=== PATIENT | female | born 1965 | race Caucasian/White ===

== ENCOUNTER 2021-04-06 07:43 | Day surgery (SDC) | payer BC, SELFPAY ==
[2021-04-03 10:11] VITALS: BMI 21.4
--- NOTE | 2021-04-04 10:36 | P.CONAN_ITS ---
Documented by User: Chelsie Davies 04/04/21 10:37 HPI - Anesthesia Eval Consult details Narrative: 56yo F for Noel Bunionectomy and Excision of Sesamoid P/W PCP Cleared [facility] Past Medical History Medical History COVID-19 vaccine administered Elevated cholesterol GERD (gastroesophageal reflux disease) Hx of migraine headaches Hx of osteoporosis Mitral regurgitation Surgical History Surgical History Hx of myringotomy Social History Social History Household Members: Family Do you presently have visiting nurse or other home services: No Smoking Status: Never smoker Use of substances other than those prescribed or required for medical reasons: No Advance Directives Information Provided: No Meds Allergies Allergy/AdvReac Type Severity Reaction Status Date / Time Sulfa (Sulfonamide Allergy Intermediate Nausea Verified 04/03/21 10:17 Antibiotics) Home Medications Medication Instructions Recorded Confirmed Last Taken Type omeprazole 20 mg PO DAILY 04/03/21 04/03/21 Unknown History valacyclovir 2,000 mg PO Q12H PRN 04/03/21 04/03/21 Unknown History Exam Exam Date and Time: April 04, 2021 1036 Height,Weight and Vital Signs: Height 5 ft 1.5 in Weight 52.163 kg Assessment and Plan Assessment Anesthesia Assessment: Chart Reviewed Documented by User: Norma Viera 04/06/21 07:54 [facility] Past Medical History Medical History COVID-19 vaccine administered Elevated cholesterol GERD (gastroesophageal reflux disease) Hx of migraine headaches Hx of osteoporosis Mitral regurgitation Surgical History Surgical History Hx of myringotomy Social History Social History Household Members: Family Do you presently have visiting nurse or other home services: No Smoking Status: Never smoker Use of substances other than those prescribed or required for medical reasons: No Advance Directives Information Provided: No Meds Allergies Allergy/AdvReac Type Severity Reaction Status Date / Time Sulfa (Sulfonamide Allergy Intermediate Nausea Verified 04/03/21 10:17 Antibiotics) Home Medications Medication Instructions Recorded Confirmed Last Taken Type omeprazole 20 mg PO DAILY 04/03/21 04/03/21 Unknown History valacyclovir 2,000 mg PO Q12H PRN 04/03/21 04/03/21 Unknown History
--- NOTE | 2021-04-05 08:41 | HP_ITS ---
DATE OF SERVICE: 04/06/2021 PREOPERATIVE DIAGNOSES: 1. Hallux abductovalgus deformity, right foot. 2. Sesamoiditis, right foot. PLANNED PROCEDURES: 1. Scarf Bunionectomy, right foot. 2. Sesamoidectomy, right foot. PAST MEDICAL HISTORY: Mumps, chickenpox. CURRENT MEDICATIONS: Omeprazole, valacyclovir. SURGICAL HISTORY: Denies. FAMILY HISTORY: Denies. SOCIAL HISTORY: The patient is a nonsmoker. Denies any illicit drug use. 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 ALLERGIES: BACTRIM. HOSPITALIZATIONS: Denies. REVIEW OF SYMPTOMS: Within normal limits. HISTORY OF PRESENT ILLNESS: This is a 56-year-old female who presents with aching and tenderness in her great toe joint, right foot is worse than her left for several years, has been gradually getting progressively worse. Pain with pressure, standing, and walking. Has tried rest and changed shoes without any relief of symptoms. PHYSICAL EXAMINATION: GENERAL: Reveals a healthy, alert, well-nourished, well-developed, well-hydrated individual who demonstrates proper attention to body habitus and hygiene, in no acute distress. She is oriented to person, place, and time. NEUROLOGICAL: Reveals intact sensorium. Pain sensation is normal. Vibratory sensation is intact. Pinprick sensation is normal. The patient denies any anesthesias, burning paresthesias, or tingling bilaterally. VASCULAR: DP and PT pulses are 3/4 bilaterally. Capillary refill is immediate to all digits. Skin temperature is warm to cool proximal to distal. Hair growth, texture, elasticity, and turgor are normal. Pigmentation is normal, and there is no edema bilaterally. DERMATOLOGICAL: Reveals normal texture, elasticity, and turgor. There are no masses. The interspaces are clear. ORTHOPEDIC: Muscle strength is 5/5 in a symmetrical fashion. There is a medially prominent 1st metatarsophalangeal joint with pain on palpation. Inflammation is absent. Lateral tracking of the 1st MPJ is incompletely reducible, and there is pain on palpation to the plantar sesamoids. IMAGING: X-rays are reviewed, which show increased 1st intermetatarsal angle and hallux abductus angle consistent with bunion deformity, hypertrophy of the dorsal medial 1st metatarsal head without subchondral cysts, and position of the sesamoids is about #6. PLAN: The patient is scheduled for surgery. Several times, the bunion surgeries were discussed with the patient including but not limited to modified Howard bunionectomy, Noel or Saroj bunionectomy, shaft versus based wedge osteotomies with internal fixation, and Lapidus joint fusions with internal fixation. We discussed the risks of having surgery versus not having surgery, the potential surgical complications including but not limited to delayed or nonhealing, excessive scarring, excessive swelling, failure of the procedure, floppy toe infection, nonunion, numbness, chronic pain, reoccurrence, shortened toe, joint stiffness, and loss of toe, foot, life, or limb. The anesthesia and the usual postoperative course for each procedure were discussed. No guarantees were given. We decided to perform a Scarf bunionectomy with possible sesamoidectomy based on the patient's complaints, medical history and social history, physical exam, x-ray report, living and driving conditions, ability to ambulate afterwards, and required postoperative time as well as the patient's individual preference. Discussed reviewed x-rays with the patient. We discussed the findings related to the patient's symptoms and concerns. The patient would like to proceed with surgical treatment. She will obtain preoperative labs as well as medical clearance for surgery and anesthesia. She is made aware to stop any and all blood thinners including fish oil and [id number] aspirin at least 1 week prior to surgery and made aware of the fact that driving may not be allowed during a portion of the postoperative period. The patient deferred prescription for narcotic pain medication. Recommend staggering taking Tylenol Extra Strength and Motrin 800 mg as needed for any discomfort. Shelly Ziegler DPM LP/LUIS / [id number] JONAH
[2021-04-06 07:45] VITALS: BP 104/70; PULSE 74; RESP 18; TEMP 36.6; O2SAT 98
[2021-04-06] MEDS: Lactated Ringers 1,000 ML 100 ML IVCONT (08:04)
--- NOTE | 2021-04-06 08:10 | HO.ANESPROP2 ---
REPLACED BY [facility] Past Medical History Medical History COVID-19 vaccine administered Elevated cholesterol GERD (gastroesophageal reflux disease) Hx of migraine headaches Hx of osteoporosis Mitral regurgitation Surgical History Surgical History Hx of myringotomy Social History Social History Household Members: Family Do you presently have visiting nurse or other home services: No Smoking Status: Never smoker Use of substances other than those prescribed or required for medical reasons: No Advance Directives Information Provided: No Meds Allergies Allergy/AdvReac Type Severity Reaction Status Date / Time Sulfa (Sulfonamide Allergy Intermediate Nausea Verified 04/03/21 10:17 Antibiotics) Active Medications: Current Medications Generic Name Dose Route Start Last Admin Trade Name Freq PRN Reason Stop Dose Admin Lactated Ringer's 1,000 mls @ 100 mls/hr 04/06/21 07:15 04/06/21 08:04 Lr IVCONT 100 mls/hr .Q10H RUSTAM Administration Home Medications Medication Instructions Recorded Confirmed Last Taken Type omeprazole 20 mg PO DAILY 04/03/21 04/03/21 Unknown History valacyclovir 2,000 mg PO Q12H PRN 04/03/21 04/03/21 Unknown History Exam Exam Date and Time: April 06, 2021 0810 Height,Weight and Vital Signs: Height 5 ft 1.5 in Weight 52.163 kg Last Vital Signs Temp 98 F 04/06/21 07:45 Pulse 74 04/06/21 07:45 Resp 18 04/06/21 07:45 BP 104/70 04/06/21 07:45 Pulse Ox 98 04/06/21 07:45 Airway Mallampati Class: II TM Dist: >3cm Heart: RRR Lungs: CTA Assessment and Plan Assessment Anesthesia Assessment: Anesthesia Plan Discussed and Chart Reviewed Final Anesthetic Review NPO: Yes ASA Class: II Final Preanesthetic Review: No Changes in Pt Med Stat, Meds/Allgs Chart Reviewed, Consent Obtained/Reviewed and Anes Risks/Benef Reviewed Patient Risk: Low Procedure Risk: Low Anesthetic Plan Anesthetic Plan: MAC: Disposition: Standard PACU
--- NOTE | 2021-04-06 08:59 | MHC.SHP ---
Pre-Procedural Eval Section A The patient is an INPATIENT: No Changes since office visit: No Cold of Flu in the past 2 weeks, No New Medical Problems, No Changes in Medication and No Patient answered all questions The History & Physical has been completed within 30 days and I have reviewed it.: Yes Section B Chief Complaint: hallux valgus,joint disorder Allergies: Allergies Allergy/AdvReac Type Severity Reaction Status Date / Time Sulfa (Sulfonamide Allergy Intermediate Nausea Verified 04/03/21 10:17 Antibiotics) Plan I have reviewed the history and physical and performed a pertinent physical examination on my patient. No changes have occurred unless specified.
--- NOTE | 2021-04-06 09:50 | P.BOP_ITS ---
Brief Operative Note Date of Service: 04/06/21 Pre-op diagnosis: Hallux Abductovalgus right foot Post-op diagnosis: same Procedure: Scraf bunionectomy right foot Implants: [place] screws Surgeon: Shelly Ziegler Anesthesia: MAC and local Was an Electroencephalograph Technician used for this Procedure?: Yes Electroencephalograph Technician: Kiran Hernández Estimated blood loss (mL): 5 Tourniquet time (min): 28 Pathology: other Condition: stable Disposition: PACU
[2021-04-06 09:52] VITALS: BP 99/62; PULSE 63; RESP 16; TEMP 36.3; O2SAT 100
[2021-04-06 10:07] VITALS: BP 102/61; PULSE 76; RESP 18; O2SAT 100
[2021-04-06 10:22] VITALS: BP 115/69; PULSE 70; RESP 18; O2SAT 100
--- NOTE | 2021-04-13 10:40 | OP_ITS ---
SURGEON: Shelly Ziegler DPM PREOPERATIVE DIAGNOSIS: Hallux abductovalgus deformity, right foot. POSTOPERATIVE DIAGNOSIS: Hallux abductovalgus deformity, right foot. PROCEDURE PERFORMED: Right foot Scarf bunionectomy. ESTIMATED BLOOD LOSS: 5 mL. COMPLICATIONS: None. ANESTHESIA: Monitored anesthetic care with local consisting preoperatively of 18 mL of 0.5% Marcaine plain and 2% lidocaine plain and postoperatively of 5 mL of 0.5% Marcaine plain and 1 mL of dexamethasone. ASSISTANTS: Kiran Hernández DPM. SPECIMENS: Bone right foot TOURNIQUET: Pneumatic ankle tourniquet set at 215 mmHg for 28 minutes. INDICATIONS FOR SURGERY: The patient had painful bunion deformity noted to the right foot that had been present for several years, that has not been progressing with conservative treatments. The above-mentioned surgery was discussed at length with the patient including risks, benefits, and complications. No guarantees were given, and written and oral informed consent was obtained. PROCEDURE IN DETAIL: The patient was brought into the operating room, placed on the operating table in the supine position. 2 g of cefazolin was administered as a prophylactic preoperative antibiotic. Right foot was anesthetized with the above-mentioned local anesthetic and then the right foot was scrubbed, prepped, and draped in a sterile manner. Attention was directed to the right foot at the level of the first metatarsophalangeal joint. An incision was made approximately 12 cm in length. The incision was deepened down through subcutaneous tissue with great care being taken to retract vital, neural, and vascular structures and all bleeders were cauterized as necessary. A medial and parallel capsulotomy was made parallel to the extensor tendon to the level of bone of the first metatarsal shaft and head and the soft tissues were freed from their osseous attachments. The medial eminence was resected with power instrumentation of the first metatarsal head and passed from my operative site. Attention was then directed to the first interspace, where a lateral release was performed. The deep transverse intermetatarsal ligament, the medial sesamoidal ligament, and the abductor tendon were resected. A McGlamry elevator was also used to free up any adhesions of the first metatarsal head. During the lateral release, the fibular sesamoid was evaluated and noted to be in an adequate position, was not deviated as laterally as noted on x-ray and was therefore decided not to remove at that time. Attention was then directed back to the medial aspect of the first metatarsal head and shaft. An osteotomy was created. The first cut was made at the first metatarsal head on the plantar aspect. A long osteotomy was made through the shaft and then a dorsal osteotomy was made in the mid shaft dorsally forming a Z osteotomy.. Once the osteotomies were completed, the capital fragment was translocated laterally and shifted slightly to avoid any troughing, and was temporarily fixated with a 0.062 K-wire and then two 3-0 screws were placed across the osteotomy site, Two 17 mm Leodan Asnis screws under standard technique were insterted. All temporary guide wires were removed. Any overhanging medial eminence was resected with power instrumentation and passed from my operative site and the wound was irrigated with sterile normal saline. A piece of AmnioFix was placed. A medial capsulorrhaphy was made in the medial aspect of the medial capsule and reapproximated with 3-0 Vicryl. The dorsal capsule was reapproximated with 3-0 Vicryl in a continuous running fashion. The piece of AmnioFix was placed extracapsular and the soft tissues were reapproximated with 4-0 Vicryl and then a continuous running fashion. A ZipLine was placed over the incision and tightened. The postoperative injection of 0.5% Marcaine plain and 1 mL of dexamethasone was administered. The foot was then dressed with Betadine-soaked gauze, 4x4s, fluffs, Joanna, cast padding, and an Jay bandage. The patient tolerated the procedure and anesthesia well. The pneumatic ankle tourniquet was deflated and prompt capillary refill was noted to all 5 digits. The patient will be discharged home with written and oral postoperative instructions. She will take [id number] Motrin and Tylenol as needed for any discomfort. The patient will be partial weightbearing to the right foot with crutches and a surgical shoe or cast boot. Shelly Ziegler DPM LP/LIUS / [id number] JONAH
== END 2021-04-06 11:09 | disposition home or self-care (01) ==
PROVIDERS: PCP Nurse Practitioner Adult Health; Visit Provider Podiatrist
PROC: (CPT 28292; principal; 2021-04-06 09:10)
PROC: (CPT 28296; 2021-04-06 09:10)
DX: M20.11 Hallux valgus (acquired), right foot (principal); M25.871 Other specified joint disorders, right ankle and foot; Z88.0 Allergy status to penicillin
CPT/HCPCS: 28296; 88304; 88311; C1713; J0690; J1100; J2250; J2405; J3010; J3590

== ENCOUNTER 2021-10-05 07:01 | Day surgery (SDC) | payer BC, SELFPAY ==
[2021-09-28 10:56] VITALS: BMI 21.7
[2021-10-05 07:11] VITALS: BP 97/55; PULSE 82; RESP 16; TEMP 37.2; O2SAT 99
--- NOTE | 2021-10-05 08:18 | HO.ANESPROP2 ---
HPI - Anesthesia Eval Consult details Narrative: 56 yo female patient for Left Scarf Bunionectomy PMFSH Past Medical History Medical History Chest pain COVID-19 vaccine series completed Elevated cholesterol GERD (gastroesophageal reflux disease) Hx of cardiac murmur Hx of migraine headaches Mitral regurgitation Osteopenia Family History Family history of problems with anesthesia: No Surgical History Surgical History History of bunionectomy History of sinus surgery History of tympanoplasty of left ear Hx of myringotomy History of Problems with Anesthesia: No Social History Social History Household Members: Family Do you presently have visiting nurse or other home services: No Patient Tobacco Use Status: Never used Tobacco Use of substances other than those prescribed or required for medical reasons: No Are you DNR?: No Advance Directives: No Advance Directives Information Provided: Yes Advance Directives on File: No Meds Allergies Allergy/AdvReac Type Severity Reaction Status Date / Time Sulfa (Sulfonamide AdvReac Intermediate Nausea Verified 10/05/21 07:08 Antibiotics) Home Medications Medication Instructions Recorded Confirmed Last Taken Type valacyclovir 500 mg tablet 2,000 mg PO Q12H PRN 04/03/21 09/28/21 Unknown History Exam Exam Date and Time: October 05, 2021 0818 Height,Weight and Vital Signs: Height 5 ft 1 in Weight 52.163 kg Last Vital Signs Temp 99.0 F 10/05/21 07:11 Pulse 82 10/05/21 07:11 Resp 16 10/05/21 07:11 BP 97/55 L 10/05/21 07:11 Pulse Ox 99 10/05/21 07:11 Airway Mallampati Class: II TM Dist: >3cm Neck ROM: Full Loose/Missing/Broken Teeth: No Heart: RRR + murmur Lungs: CTAB Assessment and Plan Assessment Anesthesia Assessment: Anesthesia Plan Discussed and Chart Reviewed Final Anesthetic Review Family History of Problems with Anesthesia: No History of Problems with Anesthesia: No NPO: Yes ASA Class: II Final Preanesthetic Review: No Changes in Pt Med Stat, Meds/Allgs Chart Reviewed, Consent Obtained/Reviewed and Anes Risks/Benef Reviewed Patient Risk: Intermediate Procedure Risk: Low Assessment/Block/Sedation in SS: Assess/Block/Sedation-SS Anesthetic Plan Anesthetic Plan: GA and MAC: Disposition: Standard PACU
[2021-10-05] MEDS: Lactated Ringers 1,000 ML 100 ML IVCONT (08:29)
--- NOTE | 2021-10-05 08:29 | MHC.SHP ---
Pre-Procedural Eval Section A Date of Service: 10/05/21 The patient is an INPATIENT: No Changes since office visit: No Cold of Flu in the past 2 weeks, No New Medical Problems, No Changes in Medication and No Patient answered all questions The History & Physical has been completed within 30 days and I have reviewed it.: Yes Section B Chief Complaint: hallux valgus left foot Details of Present Illness: Pain left foot for several years Relevant Family History (Specify if Yes): No Relevant Social History: None Present Medications: see Short Stay Collaborative assessment Medical History: No relevant PMH History of Previous Operations: Relevant previous surgery/procedure and date(s) Allergies: Allergies Allergy/AdvReac Type Severity Reaction Status Date / Time Sulfa (Sulfonamide AdvReac Intermediate Nausea Verified 10/05/21 07:08 Antibiotics) Review of Systems Sugical H&P ROS: Negative: Constitution, Cardiovascular, Respiratory, Neurological, Psychiatric, Hem-Onc, Allergic/Immunologic, Gastrointestinal, Genitourinary, Musculoskeletal, Integumentary, Endocrine and Eyes/Ears/Nose/Throat Exam Surgical H&P Exam: Normal: HEENT, Normal: Heart, Normal: Lungs, Normal: Extremities, Normal: Abdomen, Normal: Skin and Normal: Neurological Plan Diagnosis/Plan: Unchanged I have reviewed the history and physical and performed a pertinent physical examination on my patient. No changes have occurred unless specified.
--- NOTE | 2021-10-05 09:27 | PM.OP ---
Brief Operative Note Date of Service: 10/05/21 Pre-op diagnosis: Left hallux abducto valgus Post-op diagnosis: same Procedure: Left Scarf bunionectomy Implants: 2 15mm Leodan asnis screws Surgeon: Shelly Ziegler Anesthesia: MAC and local Was an Design And Sales Consultant used for this Procedure?: Yes Design And Sales Consultant: Kiran Hernández Estimated blood loss (mL): 5 Tourniquet time (min): 24 Condition: stable Disposition: PACU
[2021-10-05 09:35] VITALS: BP 104/66; PULSE 63; RESP 16; TEMP 36.6; O2SAT 99
[2021-10-05 09:50] VITALS: BP 106/66; PULSE 64; RESP 16; TEMP 36.6; O2SAT 100
--- NOTE | 2021-10-05 17:58 | OP_ITS ---
SURGEON: Shelly Ziegler DPM PREOPERATIVE DIAGNOSIS: Hallux abductovalgus deformity, left foot. POSTOPERATIVE DIAGNOSIS: Hallux abductovalgus deformity, left foot. PROCEDURE PERFORMED: Left foot Scarf bunionectomy. ESTIMATED BLOOD LOSS: Less than 1 mL. COMPLICATIONS: None. ANESTHESIA: Monitored anesthetic care with local consisting preoperatively of 18 mL of 0.5% Marcaine plain and 2% lidocaine plain. ASSISTANTS: Kiran Hernández DPM. SPECIMENS: Bone left foot HEMOSTASIS: Pneumatic ankle tourniquet set at 215 mmHg for 24 minutes. INDICATIONS FOR SURGERY: The patient had painful bunion deformity noted to the left foot that has failed conservative treatment. The above-mentioned surgery was discussed in detail with the patient including risks, benefits, and possible complications. No guarantees were given, and a written and oral informed consent was obtained. DESCRIPTION OF PROCEDURE: The patient was brought into the operating room and placed on the operating table in the supine position. Following IV sedation, the above-mentioned local anesthetic was injected about the left foot in a regional field block fashion. 2 g of cefazolin was administered as a prophylactic preoperative antibiotic and the left foot was scrubbed, prepped, and draped in a sterile manner. Attention was directed to the left foot. Pneumatic ankle tourniquet was inflated after exsanguination of the left foot and attention was directed to the first metatarsophalangeal joint. An incision was made over that joint approximately 8 cm in length. The incision was deepened down through subcutaneous tissue with great care being taken to retract vital neural and vascular structures and all bleeders were cauterized as necessary. A linear capsulotomy was made medial and parallel to the extensor tendon. The soft tissues were freed about the 1st metatarsophalangeal joint. The medial eminence of the 1st metatarsal head was resected using power instrumentation and passed from the operative field. Attention was directed via the same incision to the first interspace where a lateral release was performed. The deep transverse intermetatarsal ligament, the fibular sesamoidal ligament, and the head of the adductor tendon were released, allowing the first metatarsal head to drift into a more corrected position. Attention was directed back medially where an osteotomy was created. First, an apex of the osteotomy was created at the 1st metatarsal head and then a wing pointing plantarly distally and then a wing pointing dorsally proximally which was connected with a horizontal incision creating a sideways Z-osteotomy. The Z-osteotomy was completed. The capital fragment was translocated laterally with great care being taken not to have the osteotomy trough into the mid shaft of the bone, and the foot was temporarily fixated with two K-wires from the 3-0 Asnis set and two 50 mm Leodan Asnis screws were placed under standard technique across the osteotomy site. The guidewires were removed. The remaining medial eminence of the osteotomy site was resected and passed from the operative site. There was noted be excellent compression of the osteotomy as well as reduction of the bunion deformity. The wound was irrigated with copious amounts of normal sterile saline. The capsular structures were reapproximated with 3-0 Vicryl in a continuous running fashion. The skin was reapproximated with 4-0 Vicryl in a continuous running fashion with interrupted suture technique of 4-0 nylon. Over the incision, a zip line was placed. A postoperative injection of 5 mL of 0.5% Marcaine plain and 1 mL of dexamethasone was administered. The left foot was then dressed with Adaptic, Betadine-soaked gauze, 4x4s, fluffs, Kerlix, cast padding, and an Jay bandage. Prompt capillary refill was noted after deflation of the pneumatic ankle tourniquet after 24 minutes. The patient tolerated procedure and anesthesia well. She was transferred to recovery room with vital signs stable and vascular status at preoperative levels. Following a period of postoperative recovery, the patient will be discharged home with written and oral postoperative instructions. The patient will follow up in my office for all postoperative followup care and if any problems arise. HARRY Rodgers / [phone] JONAH
== END 2021-10-05 10:20 | disposition home or self-care (01) ==
PROVIDERS: PCP Nurse Practitioner Adult Health; Visit Provider Podiatrist
PROC: (CPT 28292; principal; 2021-10-05 08:20)
DX: M20.12 Hallux valgus (acquired), left foot (principal); M21.612 Bunion of left foot; M79.672 Pain in left foot; M85.80 Other specified disorders of bone density and structure, unspecified site; I34.0 Nonrheumatic mitral (valve) insufficiency; K21.9 Gastro-esophageal reflux disease without esophagitis; Z88.2 Allergy status to sulfonamides
CPT/HCPCS: 28296; 88304; 88311; C1713; J0690; J1100; J2250; J3010

== ENCOUNTER 2024-02-12 07:57 | Emergency (ER) | payer BC, SELFPAY ==
--- NOTE | ~2024-02-12 | CT_ITS ---
CT ANGIOGRAM NECK WITH CONTRAST CT ANGIOGRAM BRAIN WITH CONTRAST CLINICAL INFORMATION: Severe left-sided headache, numbness, and dizziness. COMPARISON: Head CT 02/12/2024. TECHNIQUE: Test bolus sequences followed by intravenous administration 70 mL of Omnipaque 350. Helical imaging was performed in the axial plane from the thoracic inlet to the skull vertex. Delayed postcontrast imaging of the head was also performed. The data was processed at the certified neurodiagnostic technologist workstation for generation of MIP sequences. Angled MIPs and volume rendered reformatted images were also generated at an offline 3D workstation under concurrent supervision. Stenoses are assessed in accordance with NASCET criteria unless otherwise indicated. This CT examination was performed using dose optimization techniques as appropriate, variously including the following: *Automated exposure control *Adjustment of mA and/or kV according to patient size (this includes techniques or standardized protocols for targeted exams where dose is matched to indication/reason for exam; i.e. extremities or head) *Use of iterative reconstruction technique FINDINGS: BRAIN: [There is calcification within the globus pallidus bilaterally. There is background chronic microangiopathy. There is no intracranial hemorrhage, hydrocephalus, extra-axial surface collection, midline shift, or other herniation pattern. Gonzalez to white matter differentiation is diffusely maintained without evidence of an evolved acute territorial infarct. The basilar cisterns are preserved. No significant soft tissue abnormality. No acute osseous abnormality. There is moderate mucosal thickening and a small fluid level within the left maxillary sinus. The remaining paranasal sinuses are clear. There is a moderate left mastoid effusion. CERVICAL SOFT TISSUES AND LUNG APICES: Imaged upper lungs are clear. There is multilevel cervical spondylosis. NECK CTA: Left vertebral artery arises from the aortic arch. Proximal arch vessels are non-stenotic. The right vertebral artery is dominant. No significant ostial stenosis is visualized on either side. Both vertebral arteries are widely patent throughout their extracranial cervical course. Both common and internal carotid arteries are normal in course and caliber.] BRAIN CTA: [There is normal opacification of major intracranial arteries. No focal flow-limiting stenosis nor discrete proximal large artery occlusion. No aneurysm. Timing of the contrast bolus allows assessment of the major dural venous sinuses, which all opacify normally] CT/CT angio head neck stroke IMPRESSION: - No acute intracranial findings. Chronic microangiopathy. There is a moderate mucosal thickening and small fluid level within the left maxillary sinus and there is a moderate left mastoid effusion. - No acute arterial occlusions and no significant arterial stenoses within the head or neck. Findings discussed with Dr. James at 8:50 AM on 02/12/2024.
--- NOTE | ~2024-02-12 | CT_ITS ---
EXAMINATION: CT HEAD WITHOUT CONTRAST (STROKE PROTOCOL) CLINICAL INFORMATION: Stroke protocol. Left-sided headache and dizziness COMPARISON: None available. TECHNIQUE: Contiguous axial imaging was performed from the skull base to vertex without intravenous administration of contrast. This CT examination was performed using dose optimization techniques as appropriate, variously including the following: *Automated exposure control *Adjustment of mA and/or kV according to patient size (this includes techniques or standardized protocols for targeted exams where dose is matched to indication/reason for exam; i.e. extremities or head) *Use of iterative reconstruction technique DLP: 621.00 mGy-cm FINDINGS: No intra or extra-axial fluid collection or hemorrhage, mass, or mass effect. Bilateral basal ganglia calcifications incidentally are seen. Calvarium is intact. Moderate mucoperiosteal thickening noted in the left maxillary sinus with perhaps a small element of superimposed fluid. CT/CT head for stroke IMPRESSION: No intracranial hemorrhage. If symptoms persist, further evaluation with diffusion weighted MRI could be done. Results will be telephoned into the emergency room by the [facility] ENEDINA Ayala at 08:17 am
--- NOTE | 2024-02-12 08:00 | ECG_ITS ---
Test Reason : dizziness Blood Pressure : / mmHG Vent. Rate : 064 BPM Atrial Rate : 064 BPM P-R Int : 126 ms QRS Dur : 076 ms QT Int : 428 ms P-R-T Axes : 077 048 055 degrees QTc Int : 441 ms Normal sinus rhythm with sinus arrhythmia Normal ECG No previous ECGs available Referred By: Caitlin James Electronically Signed By:AGUSTIN ANAYA
[2024-02-12 08:06] VITALS: BP 117/59; BP 120/70; PULSE 75; PULSE 78; RESP 18; TEMP 36.4; O2SAT 100; BMI 18.9
[2024-02-12 08:11] LABS: Glucose, Whole Blood 114 mg/dL (60-115)
--- NOTE | 2024-02-12 08:17 | ED_ITS ---
HPI - Neuro Symptoms/Deficit General Chief Complaint: Stroke Stated Complaint: BERNARDO L SIDED NUMBNESS Source: patient, EMS and old records reviewed Mode of arrival: EMS Limitations: no limitations History of Present Illness HPI Narrative: 59 yo female with no sig PMH notes she was at work at 6am today and developed severe abrupt L sided headache and tingling on both cheeks she then felt her L 4th/5th fingers were numb she felt nausea/photophobia and tried advil without relief. She has sig nausea. No recent trauma, neck manipulation. She was fine before bed. This has never happened before. She feels very nauseated and dizzy at times. She is not on thinners. Onset (ago): hour(s) (6am today) Location: other (headache tingling both cheeks numbness L fingers) History of same: No Severity: severe Quality: tingling Relieving factors: none Exacerbating factors: none Context: sudden onset On Anticoagulants: No Associated symptoms: headaches and nausea/vomiting Treatments Prior to Arrival: other (advil) Related Data Home Medications Medication Instructions Recorded Confirmed valacyclovir 500 mg tablet 2,000 mg PO Q12H PRN Cold Sores 04/03/21 09/28/21 Previous Rx's Medication Instructions Recorded amoxicillin 875 mg-potassium 1 tab PO BID #14 tabs 02/12/24 clavulanate 125 mg tablet Allergies Allergy/AdvReac Type Severity Reaction Status Date / Time Sulfa (Sulfonamide AdvReac Intermediate Nausea Verified 10/05/21 07:08 Antibiotics) Review of Systems 2 Review of Systems: Constitutional : No Fever, No Chills, No Fatigue ENT/Mouth : No sore throat, No Rhinorrhea Eyes: No Eye Pain, No Swelling, No Redness Cardiovascular : No Chest Pain, No SOB, No Dyspnea on Exertion Respiratory : No Cough, No Sputum Gastrointestinal : pos Nausea, No Vomiting, No Diarrhea, No abdominal Pain Genitourinary : No Dysuria, No Urinary Frequency, No Hematuria, Musculoskeletal : No joint pain, No Myalgias, No Joint Swelling Skin : No Skin Lesions, No rash Neuro : No Weakness, pos Numbness, pos Dizziness, positive Headache Psych : No Anxiety/Panic, No Depression All other systems reviewed and are negative [facility] Past Medical History Attestation statement: The following information was validated with the patient. Source: old records reviewed Medical History Chest pain Hx of cardiac murmur COVID-19 vaccine series completed Osteopenia Hx of migraine headaches Mitral regurgitation Elevated cholesterol GERD (gastroesophageal reflux disease) Surgical History History of tympanoplasty of left ear History of bunionectomy History of sinus surgery Hx of myringotomy Social History Social History Household Members: Family Do you presently have visiting nurse or other home services: No Patient Tobacco Use Status: Never used Tobacco Advance Directives: No Advance Directives Information Provided: Yes Physical Exam 2 Vital Signs: Vital Signs: Last Vital Signs Temp 97.5 F 02/12/24 08:06 Pulse 69 02/12/24 10:23 Resp 14 02/12/24 10:23 BP 90/56 L 02/12/24 10:23 Pulse Ox 98 02/12/24 10:23 O2 Del Method Room Air 02/12/24 10:23 BMI result Body Mass Index 18.9 Appearance: Alert. Oriented X3. No acute distress. anxious Eyes: Pupils equal, round and reactive to light. ENT: Pharynx normal. Neck: Normal inspection. Neck supple. CVS: Normal heart rate and rhythm. Pulses normal. Respiratory: No respiratory distress. Breath sounds normal. Abdomen: Soft and nontender. Skin: Skin warm and dry. Normal skin color. Normal skin turgor. Extremities: No lower extremity edema. No calf ttp Neuro: Oriented X 3. No motor deficit. No sensory deficit. Medications Administered Discontinued Medications Generic Name Dose Route Start Last Admin Trade Name Freq PRN Reason Stop Dose Admin Diphenhydramine HCl 25 mg 02/12/24 08:31 02/12/24 08:46 Diphenhydramine Hcl 50 Mg/Ml Vial IVPUSH 02/12/24 08:32 25 mg ONCE ONE Administration Sodium Chloride 1,000 mls @ 999 mls/hr 02/12/24 08:45 02/12/24 09:50 Ns IV 02/12/24 09:45 Infused .Q1H1M RUSTAM Infusion Iohexol 100 ml 02/12/24 08:34 02/12/24 08:34 Iohexol 350 Mg/Ml 100 Ml Infus..Btl IV 02/12/24 08:35 70 ml ONCE ONE Administration Metoclopramide HCl 10 mg 02/12/24 08:31 02/12/24 08:48 Metoclopramide Hcl 10 Mg/2 Ml Vial IVPUSH 02/12/24 08:32 10 mg ONCE ONE Administration Morphine Sulfate 4 mg 02/12/24 08:31 02/12/24 08:48 Morphine Sulfate 4 Mg/Ml Cartridge IVPUSH 02/12/24 08:32 4 mg ONCE ONE Administration Protocol Medical Decision Making Medical Decision Making [facility] Narrative: 59 yo female with no sig PMH here with abrupt onset headache at work 6am felt tingling on both cheeks and tingling in L 4th and 5th fingers she has no weakness, no drift, neg rhombergs, able to do heel to duarte testing, NIH is 0 at this time will obtain CT head/CTA for ICH or dissection. IV supportive and IV morphine ordered. Could be complex migraine. No fevers to suggest TECHNOLOGY DEVELOPMENT INTERN infection. CT head done within 6 hours. I do not suspect CVA NIH is 0 TNK not indicated Differential Diagnosis Differential Diagnoses: The differential diagnosis associated with the presentation includes complex migraine, tension headache, ICH, dissection Admission/Observation Consideration of admission/observation: Escalation of care including admission/observation considered symptoms resolved feels much better CT scans negative within 6 hours doubt TIA or stroke suspect complex migraine Lab Data [facility] Lab Attestation statement: I reviewed the patient's lab results. 02/12/24 09:01 02/12/24 09:01 Labs: Lab Results 02/12/24 02/12/24 02/12/24 Range/Units 08:01 08:03 09:01 WBC 4.3 L (4.8-10.8) X10*3/uL RBC 4.30 (4.20-5.50) X10*6/uL Hgb 13.5 (12.0-16.0) g/dl Hct 37.6 (37.0-47.0) % MCV 87.4 (80.0-98.0) fL MCH 31.4 (27.0-33.0) pg MCHC 35.9 H (31.0-35.0) g/dl RDW 12.7 (11.0-16.0) % Plt Count 211 (160-400) X10*3/uL MPV 8.7 L (9.4-12.3) fL Immature Gran % (Auto) 0.2 (0.0-0.4) % Neut % (Auto) 68.8 (45-73) % Lymph % (Auto) 18.8 L (20-40) % [place] % (Auto) 8.4 (2-11) % Eos % (Auto) 1.9 (0-4) % Baso % (Auto) 1.9 (0-2) % Lymph # (Auto) 0.8 L (1.2-4.9) X10*3/uL [place] # (Auto) 0.4 (0.1-1.2) X10*3/uL Eos # (Auto) 0.1 (0.0-0.4) X10*3/uL Baso # (Auto) 0.1 (0.0-0.2) X10*3/uL Abs Immat Gran (auto) 0.01 (0.00-0.03) X10*3/uL Absolute Neuts (auto) 3.0 (2.0-8.3) x10*3/uL Absolute Nucleated RBC 0.000 (0.0-0.012) X10*3/uL Nucleated RBC % (auto) 0.0 (0.0-0.2) /100WBC PT 12.7 (11.1-13.3) SEC Whole Blood PT 12.7 (11.1-13.5) sec INR 1.0 (0.9-1.1) Whole Blood INR 1.1 (0.9-1.1) APTT 30.5 (26.0-36.8) SEC Sodium 138 (135-145) mmol/L Potassium 3.9 (3.3-5.1) mmol/L Chloride 106 (96-108) mmol/L Carbon Dioxide 24 (22-29) mmol/L Anion Gap 12 (12-20) BUN 12 (9-16) mg/dL Creatinine 0.88 (0.5-1.4) mg/dL Estim Creat Clear Calc 49.1 Estimated GFR > 60 POC Glucose 114 (60-115) mg/dL Random Glucose 97 (60-115) mg/dL Calcium 8.9 (8.4-10.2) mg/dL Magnesium 1.8 (1.6-2.6) mg/dL Total Bilirubin 1.0 (0.0-1.0) mg/dL Direct Bilirubin 0.4 (0.0-0.5) mg/dL AST 23 (5-31) U/L ALT 15 (0-31) U/L Alkaline Phosphatase 59 (39-117) U/L Troponin I High Sens < 2.7 (<3.5-17.0) ng/L Total Protein 6.4 L (6.5-8.0) g/dL Albumin 3.8 (3.5-5.0) g/dL Independent Interpretation I performed an independent interpretation of an: EKG and CT Scan (no ICH) Interpretation: Rate: 64 Rhythm: NSR [place]: normal Normal P waves. Normal FANNIE. Normal QRS complex. ST T wave : normal no DAISY qTC: 441 prior studies: no acute ischemia The study has been interpreted contemporaneously by me. . Radiology Impression Discussion of test interpretation with radiology: I discussed test interpretation with the radiologist and I have reviewed the radiologist's reading. Independent Historian Clinical information obtained from an independent historian. History obtained from or confirmed by: EMS External Record Review External record reviewed: Office record Prescription Management I considered prescription management with: Antibiotic NIH Stroke Scale Internal: Initial- Upon Arrival Level of Consciousness: Alert Level of Consciousness Questions: Answers both questions correctly Level of Consciousness Commands: Performs both tasks correctly Best Gaze: Normal Visual: No visual loss Facial Palsy: Normal Motor Arm (Right): No drift Motor Arm (Left): No drift Motor Leg (Right): No drift Motor Leg (Left): No drift Limb Ataxia: Absent Sensory: Normal Best Language: No aphasia Dysarthia: Normal Extinction and Inattention: No abnormality Score: 0 Critical Care Time Critical Care Time Critical Care Time: Yes Total Critical Care Time: 35 Attestation: stroke protocol, IV morphine with relief of pain I attest to this time spent taking care of the patient Discharge Plan Discharge Clinical Impression: Migraine headache Qualifiers: Migraine type: unspecified Status migrainosus presence: without status migrainosus Intractability: not intractable Qualified Code(s): G43.909 - Migraine, unspecified, not intractable, without status migrainosus Patient Disposition: Home, Self-Care Instructions: Migraine Headache (ED) Additional Instructions: return for any worsening symptoms or concerns confusion, fevers, worsening pain, weakness, numbness or any other concerns follow up with your sinus doctor given headache will treat possible sinusitis given symptoms on that side There is a moderate mucosal thickening and small fluid level within the left maxillary sinus and there is a moderate left mastoid effusion. Prescriptions: New amoxicillin-pot clavulanate 875-125 mg tablet 1 tab PO BID Qty: 14 0RF No Action valacyclovir 500 mg Tablet 2,000 mg PO Q12H PRN (Reason: Cold Sores) Stand Alone Forms: Work/School Release
[2024-02-12 08:21] LABS: Prothrombin Time Whole Bld POC 12.7 sec (11.1-13.5); ~PT, ~INR - Anti Coag Clinic 1.1 (0.9-1.1)
[2024-02-12] MEDS: iohexoL 350 MG/ML 100 ML INFUS..BTL IV (08:34)
--- NOTE | 2024-02-12 08:42 | MHC.STROKE ---
Notified of stroke alert in ED. Upon arrival to ED, patient in CT scan. Pt moved to bed 6 once scan complete. Pt awake, alert and oriented x 3. Skin warm and dry. Resp unlabored. c/o sudden onset headache while at work and nausea. Pt reports that she woke at 4 am and was at work by 5. Around 6am reports her headache started and was accompanied by nausea. Pt reports tingling to left fingers (4th and 5th fingers) and just below her nose. Pt is currently speaking in full sentences. No slurred speech or word finding difficulties appreciated. Hand grasp equal, no palmar drift. Equal bilateral leg strength. Heel to duarte test normal bilaterally. Does report some dizziness however is unable to classify it as spinning or rocking. Stroke/TIA education provided to patient. Pt aware and agreeable to ED care plan. Will continue to assist as needed.
[2024-02-12] MEDS: 0.9 % Sodium Chloride 1,000 ML 999 ML IV (08:45)
[2024-02-12] MEDS: diphenhydrAMINE HCL 50 MG/ML VIAL 25 MG IVPUSH (08:46)
[2024-02-12] MEDS: Metoclopramide HCl 10 MG/2 ML VIAL IVPUSH (08:48)
[2024-02-12] MEDS: Morphine Sulfate 4 MG/ML CARTRIDGE IVPUSH (08:48)
[2024-02-12 09:07] LABS: MANUAL DIFF FLAG NO
[2024-02-12 09:10] LABS: Basophils Absolute Auto 0.1 X10*3/uL (0.0-0.2); Basophils Percent Auto 1.9 % (0-2); Eosinophils Absolute Auto 0.1 X10*3/uL (0.0-0.4); Eosinophils Percent Auto 1.9 % (0-4); Hematocrit 37.6 % (37.0-47.0); Hemoglobin 13.5 g/dl (12.0-16.0); Imm Gran Abs Auto 0.01 X10*3/uL (0.00-0.03); Imm Gran Pct Auto 0.2 % (0.0-0.4); Lymphocytes Absolute Auto 0.8 X10*3/uL (1.2-4.9); Lymphocytes Percent Auto 18.8 % (20-40); Mean Corpuscular HGB Conc 35.9 g/dl (31.0-35.0); Mean Corpuscular Hemoglobin 31.4 pg (27.0-33.0); Mean Corpuscular Volume 87.4 fL (80.0-98.0); Mean Platelet Volume 8.7 fL (9.4-12.3); Monocytes Absolute Auto 0.4 X10*3/uL (0.1-1.2); Monocytes Percent Auto 8.4 % (2-11); Neutrophils Percent Auto 68.8 % (45-73); Platelet Count 211 X10*3/uL (160-400); Red Cell Distribution Width 12.7 % (11.0-16.0); White Blood Count 4.3 X10*3/uL (4.8-10.8)
[2024-02-12 09:13] LABS: Prothrombin Time 12.7 SEC (11.1-13.3)
[2024-02-12 09:16] LABS: Partial Thromboplastin Time 30.5 SEC (26.0-36.8)
--- NOTE | 2024-02-12 09:18 | PC.NURSE ---
aox4, neuro exam shows no deficits, no weakness, facial droop, slurred speech. denies cp, sob. endorses nausea and dizziness, no vomiting. on tele - NSR. EKG and labwork done. medicated per JAN for / headache and nasuea
[2024-02-12 09:26] LABS: Alanine Aminotransferase 15 U/L (0-31); Albumin Level 3.8 g/dL (3.5-5.0); Alkaline Phosphatase 59 U/L (39-117); Anion Gap 12 (12-20); Aspartate Amino Transferase 23 U/L (5-31); Bilirubin Direct 0.4 mg/dL (0.0-0.5); Blood Urea Nitrogen 12 mg/dL (9-16); Calcium 8.9 mg/dL (8.4-10.2); Carbon Dioxide 24 mmol/L (22-29); Chloride 106 mmol/L (96-108); Creatinine Clr Calc Pharmacy 49.1; Estimated Glomerular Filt Rate > 60; Glucose Random 97 mg/dL (60-115); Magnesium 1.8 mg/dL (1.6-2.6); Potassium 3.9 mmol/L (3.3-5.1); Sodium 138 mmol/L (135-145); Total Protein 6.4 g/dL (6.5-8.0)
[2024-02-12 09:30] LABS: Troponin-I High Sensitivity < 2.7 ng/L (<3.5-17.0)
[2024-02-12 10:23] VITALS: BP 90/56; PULSE 69; RESP 14; O2SAT 98
[2024-02-12 11:12] VITALS: BP 100/62; PULSE 70; RESP 16; TEMP 36.5; O2SAT 100
== END 2024-02-12 11:14 | disposition home or self-care (01) ==
PROVIDERS: Emergency Provider Emergency Medicine; PCP Nurse Practitioner Adult Health
DX: G43.909 Migraine, unspecified, not intractable, without status migrainosus (principal)
CPT/HCPCS: 36415; 70450; 70496; 70498; 80048; 80076; 82947; 83735; 84484; 85025; 85610; 85730; 93005; 96361; 96374; 96375; 99284; 99285; J1200; J2270; J2765; Q9967

== ENCOUNTER → 2024-02-12 08:00 | Outpatient (BNV) | payer BC, SELFPAY | PROVIDERS: Emergency Provider Emergency Medicine; PCP Nurse Practitioner Adult Health; Visit Provider Internal Medicine | DX: I49.9 Cardiac arrhythmia, unspecified (principal) | CPT/HCPCS: 93010 ==

== ENCOUNTER 2024-08-25 03:47 | Emergency (ER) | payer BC, SELFPAY ==
--- NOTE | ~2024-08-25 | US_ITS ---
EXAMINATION: US PELVIS CLINICAL INFORMATION: Right lower quadrant pain COMPARISON: CT abdomen and pelvis 08/25/2024 TECHNIQUE: Ultrasound of the pelvis is performed using both transabdominal and transvaginal transducers along with Doppler. Transvaginal imaging is performed due to inadequate visualization transabdominally. FINDINGS: Uterus: The uterus is anteverted and measures 6.1 x 2.9 x 4.1 cm cm. The double wall endometrial thickness is 2 mm. Echogenicity of the uterus is heterogeneous and there are some myometrial calcifications seen which could be related to fibroid disease although no discrete mass is identified. A few punctate calcifications are present in the uterus on the CT scan earlier today. A small amount of fluid is present in the endometrial canal The uterus is smooth. No visible fibroid. Adnexa: Both ovaries are visualized. There is normal color flow to the adnexa. There is no ovarian torsion. There is no pelvic ascites or fluid collection. Right ovary measures 1.9 x 0.7 x 0.6 cm. Left ovary measures 0.6 x 1.2 x 0.9 cm. US/US pelvic and transvaginal IMPRESSION: No significant abnormality is seen. Electronically signed by: Joel Martinez MD 08/25/2024 01:29 PM EDT
--- NOTE | ~2024-08-25 | CT_ITS ---
EXAMINATION: CT ABDOMEN AND PELVIS WITH CONTRAST CLINICAL INFORMATION: Right lower quadrant pain COMPARISON: None available. TECHNIQUE: Multidetector volumetric images were obtained from the superior aspect of the liver through the pubic symphysis following administration 85 mL of Omnipaque 350 intravenous contrast. Sagittal and coronal reformatted images were obtained on the technologist's workstation. Oral contrast: No This CT examination was performed using dose optimization techniques as appropriate, variously including the following: *Automated exposure control *Adjustment of mA and/or kV according to patient size (this includes techniques or standardized protocols for targeted exams where dose is matched to indication/reason for exam; i.e. extremities or head) *Use of iterative reconstruction technique DLP: 273 mGy-cm FINDINGS: LUNG BASES: The visualized lung bases are unremarkable. There is mild pectus excavatum LIVER, GALLBLADDER, AND BILIARY TREE: The liver is enlarged at 18 cm in cephalocaudad dimension. The No focal hepatic lesion or biliary ductal dilatation is present. The gallbladder is unremarkable with no evidence of radiopaque gallstones, gallbladder wall thickening, or obvious pericholecystic inflammatory changes. PANCREAS: Unremarkable. SPLEEN: Unremarkable. ADRENAL GLANDS: Unremarkable. KIDNEYS AND URETERS: The kidneys are normal in size, shape, and attenuation. No hydronephrosis, hydroureter, or calculi seen. Bilateral benign Bosniak class I renal cysts are noted which require no additional imaging or follow-up. No solid renal masses are seen. BLADDER: There is symmetric bladder wall thickening. No bladder calculi. GASTROINTESTINAL TRACT: The small and large bowel are unremarkable. Moderate stool burden in the colon. The appendix is unremarkable. ABDOMINAL WALL: No significant hernia is appreciated. LYMPH NODES: Normal. VASCULAR: Unremarkable. PELVIC VISCERA: Unremarkable. OSSEOUS STRUCTURES: Unremarkable. CT/CT abdomen pelvis w IV con IMPRESSION: 1. A cause for the patient's right lower quadrant pain has not been found. The appendix is normal. 2. Incidental note made of mild hepatomegaly, moderate stool burden and symmetric bladder wall thickening. Fleischner guidelines were followed. Electronically signed by: Joel Martinez MD 08/25/2024 09:40 AM EDT
[2024-08-25 03:58] VITALS: BP 110/67; PULSE 73; RESP 16; TEMP 36.4; O2SAT 96; BMI 19.8
--- OUTSIDE RECORDS SUMMARY | 2024-08-25 04:20 | XMS_ITS | Patient Health Record ---
Author Organization [facility] Address [address] [place] [address] Care Team Providers Care Professor Of Poultry Science Name Role Phone Crispin العلي, Marva Primary Care Provider Shelly Blood Unavailable [phone] ALLERGIES Allergen (clinical drug ingredient) Drug/Non Drug Allergy documented on EMR Reaction Allergy Type Onset Date Status sulfamethoxazole / trimethoprim Bactrim Unknown Drug Allergy Active REASON FOR REFERRAL No Information MEDICATIONS Medication SIG (Take, Route, Fr equency, Duration) Notes Start Date End Date Status Omeprazole 20 MG as directed Orally Once a day Not-Taking Multivitamin PRN Active valACYclovir HCl prrn Act sharif Physical Therapy . . . 2-3x/week for 3-4 weeks Active Flonase Not-Taking IMMUNIZATIONS Vaccine Route Administration Date Status Comme nts Influenza Unknown 10/17/2021 Refused COVID-19 Moderna Vaccine Unknown 11/13/2021 Administered First Dose: 02/06/2021 Second Dose: 03/06/2021 SOCIAL HISTORY Tobacco Use: Social History Observation Description Date Details (start date - stop date) Never Smoker NA - NA Sex Assigned At : Social History Observation Description Sex Assigned At Unknown Tobacco Use/Smoking Question Answer Notes Are you a: nonsmoker Alcohol Screen Question Answer Notes Did you have a drink contain ing alcohol in the past year? Yes How often did you have a dri nk containing alcohol in the past year? Monthly or less (1 point) How often did you have 6 or more drinks on one occasion in the past year? Less than monthly (1 point) Points 2 Interpretation Negative Tobacco use other than smoking: Question Answer Notes Are you an other tobacco user? No PROBLEMS Problem Type ICD Code Onset Dates Problem Status W/U Status Risk SNOMED Code Notes Problem Hallux valgus (acquired), left foot (M20.12) Active confirmed Acquired hallux valgus (47323486) Problem Hallux valgus (acquired), right foot (M20.11) Active confirmed Acquired hallux valgus (40707082) PLAN OF TREATMENT Pending Test Test Name Order Date X ray : Foot, left 3V 01/29/2020 X ray : Foot, left 3V 10/10/2021 X ray : Foot, left 3V 11/01/2021 X ray : Foot, left 3V 10/17/2021 X ray : Foot, left 3V 11/22/2021 X ray : Foot, right 3V 04/18/2021 X ray : Foot, right 3V 05/02/2021 X ray : Foot, right 3V 05/23/2021 X ray : Foot, right 3V 04/10/2021 X ray : Foot, right 3V 01/04/2021 X ray : Foot, right 3V 01/29/2020 Insurance Providers Payer Name Payer Address Payer Phone Subscriber Number Group Number Insured Name Patient Relationship to Insured Coverage Start Date Coverage End Date [facility] All Others [address] [place] [address] [id number] Yaritza Negron Self - patient is the insured MEDICAL (GENERAL) HISTORY Medical History History ICD Code Mumps Chicken pox Surgical History Surgery Date(Month/Year) right foot surgery 04/06/2021 Left Foot Surgery 10/05/21
[2024-08-25 04:21] LABS: Basophils Absolute Auto 0.1 X10*3/uL (0.0-0.2); Basophils Percent Auto 1.3 % (0-2); Eosinophils Absolute Auto 0.3 X10*3/uL (0.0-0.4); Eosinophils Percent Auto 3.3 % (0-4); Hemoglobin 13.5 g/dl (12.0-16.0); Imm Gran Abs Auto 0.02 X10*3/uL (0.00-0.03); Imm Gran Pct Auto 0.3 % (0.0-0.4); Lymphocytes Percent Auto 25.4 % (20-40); MANUAL DIFF FLAG NO; Mean Corpuscular HGB Conc 34.6 g/dl (31.0-35.0); Mean Corpuscular Volume 89.7 fL (80.0-98.0); Mean Platelet Volume 8.1 fL (9.4-12.3); Monocytes Absolute Auto 0.8 X10*3/uL (0.1-1.2); Monocytes Percent Auto 9.6 % (2-11); Neutrophils Absolute Auto 4.7 x10*3/uL (2.0-8.3); Neutrophils Percent Auto 60.1 % (45-73); Platelet Count 223 X10*3/uL (160-400); Red Blood Count 4.35 X10*6/uL (4.20-5.50); Red Cell Distribution Width 12.7 % (11.0-16.0); White Blood Count 7.8 X10*3/uL (4.8-10.8)
[2024-08-25 04:23] LABS: Appearance Urine Clear; Color Urine Yellow; Glucose Urine UA Negative (Negative); Leukocyte Esterase Urine Small (1+) (Negative); Nitrite Urine Negative (Negative); PH 6.5 (5.0-9.0); UMIC TRIGGER UACC YES; Urine Blood Small (1+) (Negative); Urine Ketones Negative (Negative); Urine Protein Negative (Neg-Trace)
[2024-08-25 04:24] LABS: UPreg QC Valid YES; Urine Pregnancy NEGATIVE (NEGATIVE)
[2024-08-25 04:31] LABS: Bacteria Urine None Seen (None Seen); Hyaline Casts Urine 0-2 /LPF (0-2); Squamous Epithelial Cell Urine 0-2 /HPF (0-2); UACC Culture Trigger YES; WBC Urine 0-5 /HPF (0-5)
[2024-08-25 04:32] LABS: Anion Gap 14 (12-20); Blood Urea Nitrogen 18 mg/dL (9-16); Carbon Dioxide 25 mmol/L (22-29); Chloride 108 mmol/L (96-108); Creatinine Clr Calc Pharmacy 54.7; Estimated Glomerular Filt Rate > 60; Glucose Random 101 mg/dL (60-115); Potassium 4.1 mmol/L (3.3-5.1); Sodium 143 mmol/L (135-145)
[2024-08-25 05:56] VITALS: BP 114/72; PULSE 69; RESP 14; TEMP 36.7; O2SAT 99
--- NOTE | 2024-08-25 06:29 | ED_ITS ---
HPI - Abdominal Pain General Chief Complaint: Abdominal Pain Stated Complaint: r sided lower abd pain Time Seen by Provider: 08/25/24 06:29 Source: patient and RN notes reviewed Mode of arrival: ambulatory Limitations: no limitations History of Present Illness ED Provider: Brenda Burnette PA-C [facility] narrative: This is a 59-year-old female, with no known medical problems, who presents emergency department with complaints of right lower quadrant pain which started yesterday. Patient reports that she noticed that she could not even wear her seatbelt yesterday due to the pain in her right lower quadrant. She states that she has a constant pain that waxes and wanes in severity, states that every 5 minutes or so she gets a sharp pain. She states that the pain does radiate into her right flank. She denies any urinary symptoms, no pain with urination, no dysuria, hematuria, urinary frequency or urgency. She denies taking any medications at this time. No fevers, chills, chest pain, shortness of breath, nausea, vomiting or diarrhea. No constipation. She last moved her bowels at 2:00 a.m. this morning, normal. No bloody or black stool. She did have a colonoscopy performed last week, this was performed due to polyps in her colon, there was no excisions or biopsies performed. No other complaints or concerns at this time. MD elicited complaint: abdominal pain Pertinent past history: none Onset (ago): day(s) Pain Consistency: constant Location: RLQ Severity: moderate Quality: cramping and aching Radiation: R flank Exacerbating factors: nothing Relieving factors: nothing Associated symptoms: denies other symptoms Related Data Home Medications ?Medication ?Instructions ?Recorded ?Confirmed valacyclovir 500 mg tablet 2,000 mg PO Q12H PRN Cold Sores 04/03/21 09/28/21 Previous Rx's ?Medication ?Instructions ?Recorded amoxicillin 875 mg-potassium 1 tab PO BID #14 tabs 02/12/24 clavulanate 125 mg tablet Allergies Allergy/AdvReac Type Severity Reaction Status Date / Time Sulfa (Sulfonamide AdvReac Intermediate Nausea Verified 08/25/24 04:02 Antibiotics) Review of Systems Review of Systems Yes all other systems are reviewed and are negative Constitutional: Reports as per [facility] Past Medical History Attestation statement: The following information was validated with the patient. Medical History Chest pain Hx of cardiac murmur COVID-19 vaccine series completed Osteopenia Hx of migraine headaches Mitral regurgitation Elevated cholesterol GERD (gastroesophageal reflux disease) Surgical History History of tympanoplasty of left ear History of bunionectomy History of sinus surgery Hx of myringotomy Social History Social History Household Members: Family Do you presently have visiting nurse or other home services: No Alcohol intake: current Alcohol intake frequency: holidays/special occasions only Patient Tobacco Use Status: Never used Tobacco Smoked in Last 30 Days: No Use of substances other than those prescribed or required for medical reasons: No Advance Directives: No Advance Directives Information Provided: Yes Do you have a plan to hurt others: No Plan Physical Exam ED Vital Signs: Vital Signs - 24 hr 08/25/24 03:58 08/25/24 05:56 08/25/24 08:00 Temperature 97.6 F 98.0 F 98.1 F Pulse Rate 73 69 72 Respiratory Rate 16 14 16 Blood Pressure 110/67 114/72 112/62 Pulse Oximetry 96 99 100 Oxygen Delivery Method Room Air Room Air Room Air 08/25/24 12:21 Temperature 98.0 F Pulse Rate 78 Respiratory Rate 16 Blood Pressure 116/59 L Pulse Oximetry 99 Oxygen Delivery Method Room Air BMI result Body Mass Index 19.8 Const General: cooperative, comfortable and no acute distress Orientation/consciousness: patient oriented x3 Limitations: no limitations [facility] Head: Yes normal to inspection, Yes normocephalic and Yes atraumatic Ears: hearing grossly normal bilaterally General nose exam: Normal external nose present Face and sinus: Yes normal facial exam Mouth: Normal oral and palatal mucosa present, oropharynx normal and moist mucous membranes Throat: Yes posterior oropharynx normal Eyes General: appearance normal, both eyes and all related structures Eyelids: Yes eyelids normal Conjunctivae: conjunctivae normal Sclerae: sclerae normal Pupils: Equal, round and reactive pupils present EOM: EOMs intact bilaterally Neck Neck: Yes normal visual inspection, Yes full ROM and Yes no lymphadenopathy Lymphatic: no lymphadenopathy noted Chest Chest palpation & inspection: normal inspection of the chest Resp Effort & Inspection: normal respiratory effort and able to speak in complete sentences Auscultation: clear to auscultation bilaterally, no crackles, no rales, no rhonchi and no wheezes Cardio Rate: regular rate Rhythm: regular rhythm Heart sounds: S1 normal heart sound present and S2 normal heart sound present GI Other: Right lower abdominal pain with palpation, no rebound or guarding. Patient also with right lower suprapubic tenderness on examination. Palpable masses Inspection: Yes normal to inspection Skin General skin exam: no rashes or lesions noted Trauma: no lacerations or abrasions Wounds: no wounds Neuro General: patient oriented x3 and moves all extremities Cranial nerves: Yes Equal, round and reactive pupils present Extrem General: Yes normal to inspection Right upper extremity: normal to inspection Left upper extremity: normal to inspection Right lower extremity: normal to inspection Left lower extremity: normal to inspection Course Reevaluation(s) Reevaluation #1: CT scan returns, revealing no acute abnormality. Discussed findings with patient. Given location, will obtain pelvic ultrasound to rule out any ovarian or pelvic etiology. She remained stable, offered pain medication however patient politely declines. We will continue to monitor pending workup. Time: 11:30 Reevaluation #2: Ultrasound returns, there is no significant abnormality seen. Discussed findings with patient. Urine appears to be contaminated, she is not having any urinary symptoms therefore we are awaiting urine culture to see if patient's urine comes back positive for urinary tract infection. CT scan shows no acute findings, there is slight bladder wall thickening however patient has no urinary symptoms, therefore we will await for the urine culture. There is also signs of a enlarged liver, nonspecific. I relayed these findings with patient. She remained stable throughout her entire ER stay. Vital signs stable. She is comfortable. At this point I believe it is reasonable to discharge her with return precautions. She will follow-up with her OBGYN as well as primary care physician. Patient stable for discharge. Time: 13:48 Medical Decision Making Medical Decision Making MDM Narrative: This is a 59-year-old female who presents emergency department with complaints of acute onset of right lower quadrant pain. On arrival, vital signs within normal limits. She is speaking full sentences under no acute distress. Patient has right lower quadrant pain as well as right suprapubic tenderness on examination. Given recent colonoscopy performed about a week and a half ago, will obtain CT to rule out any intraperitoneal process. Differential diagnoses include bowel obstruction, bowel perforation, diverticulitis, diverticulosis, colitis, UTI, pyelonephritis. Plan: Labs, UA, CT abdomen and pelvis Differential Diagnosis Differential Diagnoses: The differential diagnosis associated with the presentation includes See above Admission/Observation Consideration of admission/observation: Escalation of care including admission/observation considered Escalation of care including admission/observation considered however given workup today not warranted at this time. Lab Data MDM Lab Attestation statement: I reviewed the patient's lab results. No leukocytosis, stable H&H, chemistry revealing no electrolyte derangement. Urine with small blood, small leuk esterases, and rbc's. Patient has no urinary symptoms. 08/25/24 04:15 08/25/24 04:15 Labs: Lab Results 08/25/24 08/25/24 Range/Units 04:15 04:16 WBC 7.8 (4.8-10.8) X10*3/uL RBC 4.35 (4.20-5.50) X10*6/uL Hgb 13.5 (12.0-16.0) g/dl Hct 39.0 (37.0-47.0) % MCV 89.7 (80.0-98.0) fL MCH 31.0 (27.0-33.0) pg MCHC 34.6 (31.0-35.0) g/dl RDW 12.7 (11.0-16.0) % Plt Count 223 (160-400) X10*3/uL MPV 8.1 L (9.4-12.3) fL Immature Gran % (Auto) 0.3 (0.0-0.4) % Neut % (Auto) 60.1 (45-73) % Lymph % (Auto) 25.4 (20-40) % Treasure % (Auto) 9.6 (2-11) % Eos % (Auto) 3.3 (0-4) % Baso % (Auto) 1.3 (0-2) % Lymph # (Auto) 2.0 (1.2-4.9) X10*3/uL Treasure # (Auto) 0.8 (0.1-1.2) X10*3/uL Eos # (Auto) 0.3 (0.0-0.4) X10*3/uL Baso # (Auto) 0.1 (0.0-0.2) X10*3/uL Abs Immat Gran (auto) 0.02 (0.00-0.03) X10*3/uL Absolute Neuts (auto) 4.7 (2.0-8.3) x10*3/uL Absolute Nucleated RBC 0.000 (0.0-0.012) X10*3/uL Nucleated RBC % (auto) 0.0 (0.0-0.2) /100WBC Sodium 143 (135-145) mmol/L Potassium 4.1 (3.3-5.1) mmol/L Chloride 108 (96-108) mmol/L Carbon Dioxide 25 (22-29) mmol/L Anion Gap 14 (12-20) BUN 18 H (9-16) mg/dL Creatinine 0.83 (0.5-1.4) mg/dL Estim Creat Clear Calc 54.7 Estimated GFR > 60 Random Glucose 101 (60-115) mg/dL Calcium 9.0 (8.4-10.2) mg/dL Urine Color Yellow Urine Appearance Clear Urine pH 6.5 (5.0-9.0) Ur Specific Eagle 1.020 (1.005-1.025) Urine Protein Negative (Neg-Trace) mg/dL Urine Glucose (UA) Negative (Negative) mg/dL Urine Ketones Negative (Negative) mg/dL Urine Blood Small (1+) H (Negative) Urine Nitrite Negative (Negative) Ur Leukocyte Esterase Small (1+) H (Negative) Urine RBC 11-20 H (0-2) /HPF Urine WBC 0-5 (0-5) /HPF Ur Squamous Epith Cells 0-2 (0-2) /HPF Urine Bacteria None Seen (None Seen) Hyaline Casts 0-2 (0-2) /LPF Urine Test NEGATIVE (NEGATIVE) Radiology Impression Discussion of test interpretation with radiology: I have reviewed the radiologist's reading. Radiologist Impression: EXAMINATION: US PELVIS CLINICAL INFORMATION: Right lower quadrant pain COMPARISON: CT abdomen and pelvis 08/25/2024 TECHNIQUE: Ultrasound of the pelvis is performed using both transabdominal and transvaginal transducers along with Doppler. Transvaginal imaging is performed due to inadequate visualization transabdominally. FINDINGS: Uterus: The uterus is anteverted and measures 6.1 x 2.9 x 4.1 cm cm. The double wall endometrial thickness is 2 mm. Echogenicity of the uterus is heterogeneous and there are some myometrial calcifications seen which could be related to fibroid disease although no discrete mass is identified. A few punctate calcifications are present in the uterus on the CT scan earlier today. A small amount of fluid is present in the endometrial canal The uterus is smooth. No visible fibroid. Adnexa: Both ovaries are visualized. There is normal color flow to the adnexa. There is no ovarian torsion. There is no pelvic ascites or fluid collection. Right ovary measures 1.9 x 0.7 x 0.6 cm. Left ovary measures 0.6 x 1.2 x 0.9 cm. US/US pelvic and transvaginal IMPRESSION: No significant abnormality is seen. Electronically signed by: Joel Martinez MD 08/25/2024 01:29 PM EDT RP Dictated By: Joel Martinez MD CT/CT abdomen pelvis w IV con IMPRESSION: 1. A cause for the patient's right lower quadrant pain has not been found. The appendix is normal. 2. Incidental note made of mild hepatomegaly, moderate stool burden and symmetric bladder wall thickening. Fleischner guidelines were followed. Electronically signed by: Joel Martinez MD 08/25/2024 09:40 AM EDT RP Dictated By: Joel Martinez MD Prescription Management I considered prescription management with: Pain Medication Patient declines wanting pain medication at this time. Medications Administered Discontinued Medications Generic Name Dose Route Start Last Admin Trade Name Freq PRN Reason Stop Dose Admin Iohexol 85 ml 08/25/24 07:47 08/25/24 07:47 Iohexol 350 Mg/Ml 100 Ml Infus..Btl IV 08/25/24 07:48 85 ml ONCE ONE Administration Discharge Plan Discharge Clinical Impression: Abdominal pain Patient Disposition: Home, Self-Care Instructions: Abdominal Pain (ED) Additional Instructions: You were seen in the emergency department due to abdominal pain. Your workup today was reassuring. It is unclear what is causing you to have your symptoms, however your workup today was reassuring. Your CT scan shows a slightly enlarged liver and some constipation. Please follow-up with your primary care physician regarding these findings. Your urine does not appear to be infected however we are sending your urine out for further testing, we will call you if you need to be put on antibiotics. Your ultrasound does show some evidence of fibroid disease, without any discrete mass, you can follow-up with your primary care physician regarding this. Please drink plenty of fluids get plenty of rest. You may take ibuprofen and or Tylenol as needed for pain. If any new or worsening symptoms occur including but not limited to worsening abdominal pain, fevers, chills, nausea, vomiting, please seek emergent care. Prescriptions: No Action valacyclovir 500 mg Tablet 2,000 mg PO Q12H PRN (Reason: Cold Sores) amoxicillin-pot clavulanate 875-125 mg tablet 1 tab PO BID Qty: 14 0RF Print Language: Irish
[2024-08-25] MEDS: iohexoL 350 MG/ML 100 ML INFUS..BTL 85 ML IV (07:47)
[2024-08-25 08:00] VITALS: BP 112/62; PULSE 72; RESP 16; TEMP 36.7; O2SAT 100
[2024-08-25 12:21] VITALS: BP 116/59; PULSE 78; RESP 16; TEMP 36.7; O2SAT 99
[2024-08-25 14:08] VITALS: BP 104/70; PULSE 74; RESP 16; TEMP 36.6; O2SAT 98
== END 2024-08-25 14:09 | disposition home or self-care (01) ==
PROVIDERS: Emergency Medicine; Emergency Provider Emergency Medicine; PCP Nurse Practitioner Adult Health
DX: R10.31 Right lower quadrant pain (principal)
CPT/HCPCS: 36415; 74177; 76830; 76856; 80048; 81001; 81025; 85025; 87086; 99284; Q9967